=== PATIENT | male | born 1990 | race Caucasian/White ===

== ENCOUNTER → 2018-07-29 14:44 | Outpatient (CLI) | payer OTHER, SELFPAY ==
--- NOTE | 2018-07-29 | IMM_PTH ---
PATIENT: PARTH WILLIAMSON LOC: [facility] U#:[id number] AGE/SX: 34/M ROOM: RE07/29/[address]: Dr. Cheryl Anderson MD : 1990 BED: DIS: SPEC #: [id number] RECD: 07/31/18 10:45 STATUS: ROSSY REJuliana #: [id number] KIMBERLY: 07/29/18 00:[address]: Cheryl Anderson DEPT: IMMUNOHISTOCHEMISTRY RECD BY: Jeni Heath Tissues: Thyroid gland, NOS Procedures: HBME (initial) CD56 (add) CK19 (add) GAL-3 (add) PHYSICIAN & INSTITUTION [place] [id number] SPECIMEN INFORMATION: Tissue Source: Left thyroid ultrasound-guided needle core biopsy Clinical Info: Left thyroid nodule Specimen Number: [id number] CPT code: 03718, 54464 x3 METHODOLOGY: Deparaffinized sections of prefer/formalin-fixed tissue or PAP/DQ stained slides are incubated with monoclonal/polyclonal antibodies/oligonucleotide probes. Localization is made via biotin free immunoperoxidase method. Appropriate controls are performed and reacted as expected. Results on target cell population are indicated in the following table: RESULTS: ANTIBODY / CLONE RESULT HBME1 (HBME-1) positive CK19 (A53-B/A2.26) positive GAL3 (9C4) positive CD56 (123C3.D5) negative These tests were developed and their performance characteristics determined by [facility]. They may not have been cleared or approved by the [place]. Food and Drug Administration. The FDA has determined that such clearance or approval is not necessary. INTERPRETATION: Left thyroid, ultrasound-guided needle core biopsy: Consistent with papillary thyroid carcinoma. AM:gerson 08/04/18
--- NOTE | 2018-07-29 02:32 | TISS_PTH ---
PATIENT: PARTH WILLIAMSON LOC: [facility] U#:[id number] AGE/SX: 34/M ROOM: RE07/29/[address]: Dr. Cheryl Anderson MD : 1990 BED: DIS: SPEC #: [id number] RECD: 07/30/18 09:54 STATUS: ROSSY KAELA #: [id number] KIMBERLY: 07/29/18 02:[address]: Cheryl Anderson DEPT: SURGICAL PATHOLOGY RECD BY: Jeni Heath Tissues: Thyroid gland, NOS Procedures: Surgery Specimen Level IV HEADER OPERATION: Ultrasound-guided needle core biopsy of left thyroid PRE-OP DIAGNOSIS: Left thyroid nodule TISSUE SUBMITTED: Left thyroid needle core biopsy MICROSCOPIC DIAGNOSIS Left thyroid nodule, needle core biopsy: Papillary thyroid carcinoma. AM:gerson 07/31/18 COMMENT Immunohistochemistry ([id number]) supports the above diagnosis. MICROSCOPIC DESCRIPTION Slides are reviewed. GROSS DESCRIPTION Received in fixative is one container labeled with the patient's name and designated left thyroid needle core biopsy. The specimen consists of multiple reddish-pink needle core biopsy fragments ranging in length from 0.1 to 0.5 cm. The specimen is totally submitted in one cassette. / CE:rg 07/30/18 TC:0 CPT: 75111 ADDENDUM ADDENDUM ADDENDUM ADDENDUM ADDENDUM ADDENDUM ADDENDUM ADDENDUM ADDENDUM ADDENDUM 08/25/2018 09:56 ADDENDUM 08/25/2018 09:56 ADDENDUM 08/25/2018 09:56 ADDENDUM 08/25/2018 09:56 ADDENDUM 08/25/2018 09:56 This addendum is added to incorporate an outside pathology consultation report. The case was examined at [facility] (#[id number]) and the following diagnosis was rendered. Left thyroid nodule, needle core biopsy: Papillary thyroid carcinoma. Please see complete above mentioned consultation report in EMR
== END ==
PROVIDERS: Visit Provider Surgery
DX: C73 Malignant neoplasm of thyroid gland (principal)
CPT/HCPCS: 88305; 88341; 88342